=== PATIENT | male | born 1980 | race Caucasian/White ===

== ENCOUNTER 2018-04-17 07:10 | Observation (INO) | payer OTHER ==
[2018-04-17] MEDS: LACTATED RINGER'S 1,000 ML IV* (07:00)
[~2018-04-17 07:10] MED LIST: CEFAZOLIN 1 GM INJ; SEVOFLURANE 15 MIN
[2018-04-17] MEDS: GABAPENTIN 300 MG CAP PO ×2 (07:59→20:27)
[2018-04-17] MEDS: DEXAMETHASONE 1 MG TAB PO (08:00)
[2018-04-17] MEDS ORDERED: FENTAnyl 50 MCG/ML VIAL ×3 (08:47→09:54)
[2018-04-17] MEDS ORDERED: MIDAZOLAM 1 MG/ML 2 ML INJ (08:47)
[2018-04-17] MEDS ORDERED: ROPIVACAINE 0.5 % 30 ML VIAL (08:49)
[2018-04-17] MEDS ORDERED: PROPOFOL 20 ML (08:53)
[2018-04-17] MEDS ORDERED: LIDOCAINE 2% (SDV) 5 ML INJ (08:53)
[2018-04-17] MEDS ORDERED: CA CHLORIDE (GM) 10% 10 ML INJ (09:53)
[2018-04-17] MEDS ORDERED: THROMBIN (BOVINE) 5,000 UNIT VIAL TP (09:53)
[2018-04-17] MEDS: POLYMYXIN/BACITRACIN 1L IRRIG (09:54)
[2018-04-17] MEDS ORDERED: hydrALAzine 20 MG INJ (09:56)
[2018-04-17] MEDS ORDERED: CEFAZOLIN 1 GM INJ (10:37)
[2018-04-17] MEDS ORDERED: ONDANSETRON 4 MG INJ (10:59)
[2018-04-17] MEDS ORDERED: CEFAZOLIN 1 GM/50 ML (PMX) 50 ML IVPB (11:00)
[2018-04-17] MEDS ORDERED: LOPERAMIDE 2 MG CAP PO (11:00)
[2018-04-17] MEDS ORDERED: TRANEXAMIC ACID 1,000 MG in SOD CHLORIDE 0.9% 100 ML IVPB (11:00)
[2018-04-17] MEDS ORDERED: ZOLPIDEM 5 MG TAB PO (11:00)
[2018-04-17] MEDS ORDERED: MAGNESIUM HYDROXIDE 30ML CUP PO (11:00)
[2018-04-17] MEDS ORDERED: oxyCODONE 5 MG TAB PO (11:00)
[2018-04-17] MEDS ORDERED: NACL 0.9% 3 ML SYG IV (11:00)
[2018-04-17] MEDS ORDERED: DIPHENHYDRAMINE 50 MG INJ IV ×2 (11:00→12:00)
[2018-04-17] MEDS ORDERED: HYDROmorphONE 1 MG/ML SYG IV (11:00)
[2018-04-17] MEDS ORDERED: PROVENTIL HFA 6.7GM INHALER (11:15)
[2018-04-17] MEDS ORDERED: ALBUTEROL HFA 8 GM INHALER (11:18)
[2018-04-17] MEDS ORDERED: MEPERIDINE 25 MG INJ (11:35)
[2018-04-17] MEDS: MEPERIDINE 25 MG INJ IV (11:56)
[2018-04-17] MEDS ORDERED: FENTAnyl 50 MCG/ML VIAL IV (12:00)
[2018-04-17] MEDS ORDERED: METOCLOPRAMIDE 10 MG INJ IV (12:00)
[2018-04-17] MEDS ORDERED: ALBUTEROL 0.083% (NEB) 2.5 MG/3 ML AMP HHN (12:00)
[2018-04-17] MEDS ORDERED: hydrALAzine 20 MG INJ IV (12:00)
[2018-04-17] MEDS ORDERED: HYDROmorphONE 1 MG/5 ML IV SYRINGE IV ×2 (12:00)
[2018-04-17] MEDS ORDERED: LABETALOL HCL 20MG INJ IV (12:00)
[2018-04-17] MEDS: DEXAMETHASONE 2 MG TAB PO ×3 (12:00→23:44)
[2018-04-17] MEDS ORDERED: ONDANSETRON 4 MG INJ IV (12:00)
[2018-04-17] MEDS ORDERED: NALOXONE (0.4 MG/ML) INJ IV (12:00)
[2018-04-17] MEDS: ACETAMINOPHEN 500 MG TAB PO ×3 (12:00→23:44)
[2018-04-17] MEDS ORDERED: CEFAZOLIN 2 GM/50 ML (PMX) 50 ML IVPB (13:30)
[2018-04-17] MEDS ORDERED: TRANEXAMIC ACID 1,000 MG in DEXTROSE 5% 100 ML IVPB (13:30)
[2018-04-17] MEDS: ONDANSETRON 4 MG INJ IV (14:19)
[2018-04-17] MEDS: TRANEXAMIC ACID 1,000 MG in SOD CHLORIDE 0.9% 100 ML IVPB (14:20)
[2018-04-17] MEDS: CEFAZOLIN 1 GM/50 ML (PMX) 50 ML IVPB ×2 (14:48→23:33)
[2018-04-17] MEDS ORDERED: BUPIVACAINE 0.5% (SDV) 30 ML, morphine SULFATE (PF) 8 MG, EPINEPHrine 0.3 MG, KETOROLAC... IRR (15:00)
[2018-04-17] MEDS: KETOROLAC 15 MG INJ IV (19:58)
[2018-04-17] MEDS: SENNA/DOCUSATE NA (8.6MG/50MG) TAB PO (20:27)
[2018-04-17] MEDS: oxyCODONE 5 MG TAB PO (21:50)
[2018-04-18] MEDS: oxyCODONE 5 MG TAB PO (03:49)
[2018-04-18] MEDS: DEXAMETHASONE 2 MG TAB PO (06:06)
[2018-04-18] MEDS: ACETAMINOPHEN 500 MG TAB PO (06:06)
[2018-04-18] MEDS: CEFAZOLIN 1 GM/50 ML (PMX) 50 ML IVPB (06:06)
[2018-04-18] MEDS: LACTATED RINGER'S 1,000 ML IV* (06:53)
[2018-04-18] MEDS: SENNA/DOCUSATE NA (8.6MG/50MG) TAB PO (08:45)
[2018-04-18] MEDS: KETOROLAC 15 MG INJ IV (08:47)
[2018-04-18] MEDS: SUMATRIPTAN 50 MG TAB PO (08:48)
[2018-04-18] MEDS: INFLUENZA VIRUS VACCINE 0.5 ML (DISPENSING) IM* (11:20)
== END 2018-04-18 11:18 | disposition home or self-care (01) ==
LOC: SDS 07:10 → REC 07:11 → SDS 07:11 → MS1 13:04 → SDS 15:00 → MS1 15:00
DX: M19.111 Post-traumatic osteoarthritis, right shoulder (principal); Z23 Encounter for immunization
CPT/HCPCS: 23470; 73030-RT; 86999; 90686; 97110; 97116; 97162; 97530